=== PATIENT | male | born 1970 ===

== ENCOUNTER → 2016-10-24 | Outpatient (CLI) | payer OTHER ==
--- NOTE | 2016-10-24 14:37 | FMS ---
Indication productive cough for 2 to 3 weeks. PA and lateral views of the chest were obtained. No prior imaging is available. There are patchy infiltrates in the right mid and lower lung field. There is, additionally, some slight diffuse interstitial prominence. It is uncertain on the basis of this single exam whether this is reflective of fibrosis, mild interstitial edema or an interstitial inflammatory process. A focal process in the left lung is not seen. Heart size is normal. There is no pleural fluid or pneumothorax. IMPRESSION: Mild interstitial prominence.. See above discussion Patchy opacities in the right mid and lower lung field, probably inflammatory
== END ==
LOC: FMSRAD 14:04
PROVIDERS: ATTEND Family Medicine